=== PATIENT | male | born 1970 | race Caucasian/White ===

== ENCOUNTER 2018-08-25 13:34 | Inpatient (IN) | payer OTHER ==
[~2018-08-25] VITALS: Ht 177.8 cm; Wt 76.3 kg
[2018-08-25] MEDS ORDERED: SOD CHLORIDE 0.9% 1,000 ML IV STA (13:44)
[2018-08-25] MEDS ORDERED: KETOROLAC 15 MG INJ IV STA (13:44)
[2018-08-25] MEDS ORDERED: GEMF600T8 PO (14:08)
--- NOTE | 2018-08-25 15:57 | HP ---
Date/Time of Note Date/Time of Note DATE: 08/25/18 TIME: 15:57 Assessment/Plan VTE Prophylaxis SCD applied (from Nsg): Yes Pharmacological prophylaxis: NA/contraindicated Pharm contraindication: low risk/ambulating Lines/Catheters IV Catheter Type (from Nrsg): Saline Lock Assessment/Plan Assessment/Plan 1. Acute mild diverticulitis - possibly secondary to gastroenteritis sx last week - IV antibiotics and IVF on board - General surgery consulted by ED and appreciate consultation. Will continue supportive care at this time - GI consulted for further recommendations and will most likely need outpatient colonoscopy in 6-8 weeks when inflammation resolves - pain control 2. Abdominal pain secondary to #1 - not associated with PO intake but discussed with patient will need to give abdomen a rest. Will start clear diet 3. Constipation - stool softeners - will check FOBT given ?dark stool hx 4. HLD - will resume Lopid when tolerating PO 5. Disposition - Admit to med/surg for treatment of acute diverticulitis. Once abdominal pain improves, will advance diet and transitioned to PO antibiotics. 2. Result Diagram: 08/25/18 1359 08/25/18 1359 Results 24hrs Laboratory Tests Test 08/25/18 13:59 08/25/18 14:10 White Blood Count 11.6 H Red Blood Count 4.34 L Hemoglobin 14.1 Hematocrit 40.2 L Mean Corpuscular Volume 92.6 Mean Corpuscular Hemoglobin 32.5 Mean Corpuscular Hemoglobin Concent 35.1 Red Cell Distribution Width 11.9 Platelet Count 354 Mean Platelet Volume 9.8 Immature Granulocytes % 0.300 Neutrophils % 74.6 Lymphocytes % 19.0 Monocytes % 5.3 Eosinophils % 0.6 Basophils % 0.2 Nucleated Red Blood Cells % 0.0 Immature Granulocytes # 0.040 H Neutrophils # 8.7 H Lymphocytes # 2.2 Monocytes # 0.6 Eosinophils # 0.1 Basophils # 0.0 Nucleated Red Blood Cells # 0.0 Prothrombin Time 12.9 Prothrombin Time Ratio 1.0 INR International Normalized Ratio 0.96 Activated Partial Thromboplast Time 37.6 H Sodium Level 140 Potassium Level 3.7 Chloride Level 106 Carbon Dioxide Level 24 Anion Gap 10 Blood Urea Nitrogen 13 Creatinine 1.07 Est Glomerular Filtrat Rate mL/min > 60 Glucose Level 130 Calcium Level 9.2 Total Bilirubin 0.7 Direct Bilirubin 0.00 Indirect Bilirubin 0.7 Aspartate Amino Transf (AST/SGOT) 22 Alanine Aminotransferase (ALT/SGPT) 26 Alkaline Phosphatase 88 Total Protein 7.7 Albumin 4.5 Globulin 3.20 Albumin/Globulin Ratio 1.40 Lipase 96 Urine Color YELLOW Urine Clarity CLEAR Urine pH 6.0 Urine Specific [place] 1.014 Urine Ketones NEGATIVE Urine Nitrite NEGATIVE Urine Bilirubin NEGATIVE Urine Urobilinogen NEGATIVE Urine Leukocyte Esterase NEGATIVE Urine Microscopic RBC 1 Urine Microscopic WBC 0 Urine Hemoglobin 1+ H Urine Glucose NEGATIVE Urine Total Protein NEGATIVE HPI/ROS Admit Date/Time Admit Date/Time 08/25/18 Hx of Present Illness 48 yo M with PMH hyperlipidemia presented to ED with worsening abdominal pain and dizziness that started on Friday. Patient states the pain started in the left lower quadrant and migrated to the right lower quadrant. Denies any nausea, vomiting, or pain with PO intake. Patient does admit to experiencing constipation 2 weeks ago and then nonbloody diarrhea, 3-4 episodes daily, lasting from Wednesday 08/16 until 08/20. Patients does admit to dark green stool in the past but denies noticing any nicole bleeding into the toilet bowl. Does have episodes when he notices some blood on toilet paper after aggressively wiping. Denies any chest pain, shortness of breath, nausea, vomiting, urinary issues, or loss of consciousness. ROS All 12 systems reviewed and pertinent positives as per HPI. All others negative. Constitutional: No disoriented, No nausea Eyes: No discharge ENT: No congestion Respiratory: No cough, No shortness of breath, No sputum, No wheezing Cardiovascular: No chest pain, No lightheadedness, No palpitations Gastrointestinal: pain; No constipation, No decreased appetite, No diarrhea, No nausea, No vomiting Genitourinary: no complaints Musculoskeletal: no complaints Skin: No laceration, No rash Neurologic: no complaints Endocrine: no complaints Lymphatic: no complaints Psychological: nl mood/affect Immunologic: no complaints PMH/Family/Social Past Medical History Medical History: high cholesterol Medications Current Medications Piperacillin Sod/ Tazobactam Sod 100 ml @ 200 mls/hr ONCE ONCE IVPB Last administered on 08/25/18at 15:53; Admin Dose 200 MLS/HR; Start 08/25/18 at 16:00; Stop 08/25/18 at 16:29 Dextrose/Sodium Chloride 1,000 ml @ 100 mls/hr Q10H IV ; Start 08/25/18 at 15:49; Status UNV IV Flush (NS 3 ml) 3 ml PER PROTOCOL IV ; Start 08/25/18 at 16:00; Status UNV Ondansetron HCl (Zofran Inj) 4 mg Q6H PRN IV NAUSEA/VOMITING; Start 08/25/18 at 16:00; Status UNV Acetaminophen/ Hydrocodone Bitart ([place] (5/325)) 1 tab Q6H PRN PO .MOD PAIN 4- 6; Start 08/25/18 at 16:00; Status UNV Acetaminophen/ Hydrocodone Bitart ([place] (5/325)) 2 tab Q6H PRN PO .SEVERE PAIN 7-10; Start 08/25/18 at 16:00; Status UNV Morphine Sulfate (morphine) 2 mg Q4H PRN IV .SEVERE PAIN 7-10; Start 08/25/18 at 16:00; Status UNV Docusate Sodium (Colace) 100 mg Q12H PRN PO .CONSTIPATION; Start 08/25/18 at 16:00; Status UNV Magnesium Hydroxide (Milk Of Mag) 30 ml DAILY PRN PO .CONSTIPATION; Start 08/25/18 at 16:00; Status UNV Bisacodyl (Dulcolax) 5 mg DAILY PRN PO .CONSTIPATION; Start 08/25/18 at 16:00; Status UNV Famotidine (Pepcid Iv) 20 mg Q12 IV ; Start 08/25/18 at 21:00; Status UNV Enoxaparin Sodium (Lovenox) 40 mg DAILY SC ; Start 08/26/18 at 09:00; Status UNV Ciprofloxacin/ Dextrose 200 ml @ 200 mls/hr Q12 IVPB ; Start 08/25/18 at 21:00; Status UNV Metronidazole 100 ml @ 100 mls/hr Q8 IVPB ; Start 08/25/18 at 22:00; Status UNV Ketorolac Tromethamine (Toradol) 15 mg Q6H PRN IV PAIN; Start 08/25/18 at 16:00; Stop 08/28/18 at 15:59; Status UNV Coded Allergies: No Known Allergy (Unverified , 08/25/18) Past Surgical History Past Surgical Hx: no surgical history Family History Significant Family History: other (brother- appendicitis) Social History Alcohol Use: rarely Smoking Status: Current every day smoker Drug Use: none Exam/Review of Systems Vital Signs Vitals Vital Signs Date Temp Pulse Resp B/P (MAP) Pulse Ox O2 O2 Flow FiO2 Time Delivery Rate 08/25/18 100.2 103 18 124/73 99 13:36 (90) Exam Exam General: Patient is currently lying in bed, no acute distress. answering questions appropriately HEENT: Atraumatic, normocephalic. The pupils are equal, round and reactive. Extraocular motor are intact Neck: Supple with full range of motion. No rigidity or meningismus Chest: Nontender Lungs: Clear to auscultation bilaterally no crackles rales or wheezing Heart: Normal S1-S2, Regular rhythm and rate. No murmur, S3, or S4 Abdomen: Soft, tenderness palpation over RLQ, mild LLQ. nondistended, no rebound or guarding. Normal bowel sounds Skin: no rashes or lesions Extremities: Normal to inspection, no edema no cyanosis Neurologic: Normal mental status, speech normal, cranial nerves II through XII are intact, motor and sensory are intact, Additional Comments Home medications reviewed PROCEDURE: CT ABDOMEN AND PELVIS WITHOUT CONTRAST. CLINICAL INDICATION: Abdominal pain TECHNIQUE: CT scan of the abdomen and pelvis without contrast was performed on a multidetector high-resolution CT scanner. The patient was scanned without intravenous contrast. Coronal and sagittal reformatted images were obtained from the axial source images. Images were reviewed on a high-resolution PACS workstation. The total exam CTDI equals 8.7 mGy and the total exam DLP equals 529 mGy-cm. One or more of the following dose reduction techniques were used: Automated exposure control. Adjustment of the mA and/or kV according to patient size. Use of iterative reconstruction technique. DICOM images are available COMPARISON: None FINDINGS: CT abdomen: The lung bases are clear. The heart size is within normal limits. There is no significant pericardial effusion. Hepatic morphology is within normal limits. No gross contour deforming masses. The gallbladder is within normal limits. No evidence of intrahepatic or extrahepatic biliary dilatation. The spleen and pancreas are within normal limits. Both adrenal glands are within normal limits. Both kidneys are in anatomic position. No gross renal/ureteric calculi. No evidence of obstructive uropathy. The visualized GI tract demonstrates focal inflammatory changes with bowel wall thickening and adjacent fatty stranding involving the cecum. Several diverticuli are identified. The appendix is well visualized and within normal limits. Atherosclerotic calcification of the aorta. No significant retroperitoneal lymphadenopathy. CT pelvis: The bladder is distended. Prostate is normal size. Rectosigmoid colon demonstrates stool and diverticulosis. No significant free fluid. No significant pelvic lymphadenopathy. The visualized osseous structures demonstrate multilevel degenerative disease of lumbosacral spine. IMPRESSION: 1. ACUTE INFLAMMATION INVOLVING THE CECUM, WITH SEVERAL DIVERTICULI AND ADJACENT FATTY STRANDING AND BOWEL WALL THICKENING SUGGESTIVE OF MILD DIVERTICULITIS. NO EVIDENCE OF PERFORATION OR FOCAL FLUID COLLECTIONS. 2. The appendix is well visualized and within normal limits. 3. Stool filled loops of large bowel suggestive of constipation. No evidence of bowel obstruction. 4. No evidence of free fluid or free air. No gross focal fluid collections. RPTAT: AAPP Physician Laly Date Time Electronically viewed and signed by Physician Laly on 08/25/2018 14:42 DIANE SOLOMON MD Aug 25, 2018 15:57
[2018-08-25] MEDS ORDERED: PIPER-TAZO 3.375 GM IV (PMX) 100 ML IVPB ONE (16:00)
[2018-08-25] MEDS ORDERED: HYDROCODONE/APAP (5/325) TAB PO PRN ×2 (16:00)
[2018-08-25] MEDS ORDERED: ONDANSETRON 4 MG INJ IV PRN (16:00)
[2018-08-25] MEDS ORDERED: BISACODYL (EC) 5 MG TAB PO PRN (16:00)
[2018-08-25] MEDS ORDERED: MAGNESIUM HYDROXIDE 30ML CUP PO PRN (16:00)
[2018-08-25] MEDS ORDERED: DOCUSATE SODIUM 100 MG CAP PO PRN (16:00)
[2018-08-25] MEDS ORDERED: morphine 2 MG INJ IV PRN (16:00)
[2018-08-25] MEDS ORDERED: NACL 0.9% 3 ML SYG IV SCH (16:00)
--- NOTE | 2018-08-25 16:15 | CONS ---
Assessment/Plan Assessment/Plan Hospital Course (Demo Recall) 1. Mild diverticulitis involving cecum -antibiotics -GI consult 2. Abdominal pain: -As above -Pain management 3. Constipation: -Bowel regimen optimization 4. Leukocytosis: -As above 5. Hyperlipidemia: -Medical management Thank you. Patient seen and examined in collaboration with Dr. Collin Blanchard. Consultation Date/Type/Reason Admit Date/Time Date of Consultation: Aug 25, 2018 Type of Consult Surgical Reason for Consultation abdominal pain, diverticulitis Requesting Provider: DONNELL HERRERA MD Date/Time of Note DATE: 08/25/18 TIME: 16:01 Hx of Present Illness Derick Kohler is a 48-year-old man with past medical history of hyperlipidemia who presents with complaints of abdominal pain. Abdominal pain began yesterday, burning in nature. Abdominal pain was stated to have started from the left side which eventually migrated to the right side. Associated symptoms include subjective fever, intermittent constipation x1 month. He denies chills, chest pain, palpitations, nausea, vomiting, dysuria, trauma to the area, skin changes.CT imaging of the abdomen reveals acute inflammation involving cecum with several diverticuli and adjacent fatty stranding and bowel wall thickening suggestive of mild diverticulitis without evidence of perforation or focal fluid collections. Laboratory findings significant for mild leukocytosis. General surgery was asked to evaluate. 12 point review of systems was performed and is negative except for stated in HPI Past Medical History Gastritis Hyperlipidemia Home Meds Reported Medications Gemfibrozil* (Gemfibrozil*) 600 Mg Tablet, 600 MG PO BID, TAB 08/25/18 Medications Current Medications Piperacillin Sod/ Tazobactam Sod 100 ml @ 200 mls/hr ONCE ONCE IVPB Last administered on 08/25/18at 15:53; Admin Dose 200 MLS/HR; Start 08/25/18 at 16:00; Stop 08/25/18 at 16:29 Dextrose/Sodium Chloride 1,000 ml @ 100 mls/hr Q10H IV ; Start 08/25/18 at 15:49; Status UNV IV Flush (NS 3 ml) 3 ml PER PROTOCOL IV ; Start 08/25/18 at 16:00; Status UNV Ondansetron HCl (Zofran Inj) 4 mg Q6H PRN IV NAUSEA/VOMITING; Start 08/25/18 at 16:00; Status UNV Acetaminophen/ Hydrocodone Bitart ([place] (5/325)) 1 tab Q6H PRN PO .MOD PAIN 4- 6; Start 08/25/18 at 16:00; Status UNV Acetaminophen/ Hydrocodone Bitart ([place] (5/325)) 2 tab Q6H PRN PO .SEVERE PAIN 7-10; Start 08/25/18 at 16:00; Status UNV Morphine Sulfate (morphine) 2 mg Q4H PRN IV .SEVERE PAIN 7-10; Start 08/25/18 at 16:00; Status UNV Docusate Sodium (Colace) 100 mg Q12H PRN PO .CONSTIPATION; Start 08/25/18 at 16:00; Status UNV Magnesium Hydroxide (Milk Of Mag) 30 ml DAILY PRN PO .CONSTIPATION; Start 08/25/18 at 16:00; Status UNV Bisacodyl (Dulcolax) 5 mg DAILY PRN PO .CONSTIPATION; Start 08/25/18 at 16:00; Status UNV Famotidine (Pepcid Iv) 20 mg Q12 IV ; Start 08/25/18 at 21:00; Status UNV Enoxaparin Sodium (Lovenox) 40 mg DAILY SC ; Start 08/26/18 at 09:00; Status UNV Ciprofloxacin/ Dextrose 200 ml @ 200 mls/hr Q12 IVPB ; Start 08/25/18 at 21:00; Status UNV Metronidazole 100 ml @ 100 mls/hr Q8 IVPB ; Start 08/25/18 at 22:00; Status UNV Ketorolac Tromethamine (Toradol) 15 mg Q6H PRN IV PAIN; Start 08/25/18 at 16:00; Stop 08/28/18 at 15:59; Status UNV Allergies: Coded Allergies: No Known Allergy (Unverified , 08/25/18) Past Surgical History Past Surgical Hx: no surgical history Family History Significant Family History: no pertinent family hx Social History Alcohol Use: none Smoking Status: Current every day smoker Drug Use: none Exam/Review of Systems Exam Vitals Vital Signs Date Temp Pulse Resp B/P (MAP) Pulse Ox O2 O2 Flow FiO2 Time Delivery Rate 08/25/18 100.2 103 18 124/73 99 13:36 (90) Constitutional: alert, oriented Psych: nl mood/affect; No anxiety Head: normocephalic, atraumatic Eyes: nl conjunctiva, EOMI, nl lids, nl sclera ENMT: nl external ears & nose, nl lips & teeth, mucosa pink and moist Neck: supple, non-tender Respiratory: clear to auscultation, normal air movement; No congested cough Cardiovascular: regular rate and rhythm; No edema Gastrointestinal: soft, distended (Minimal), tender (Right lower quadrant); No rebound or guarding Musculoskeletal: nl extremities to inspection, nl gait and stance Extremities: normal pulses Neurological: nl mental status, nl speech, nl strength Skin: No rash or lesions Lymph: nl lymph nodes Results Result Diagram: 08/25/18 1359 08/25/18 1359 Results 24hrs Laboratory Tests Test 08/25/18 13:59 08/25/18 14:10 White Blood Count 11.6 H Red Blood Count 4.34 L Hemoglobin 14.1 Hematocrit 40.2 L Mean Corpuscular Volume 92.6 Mean Corpuscular Hemoglobin 32.5 Mean Corpuscular Hemoglobin Concent 35.1 Red Cell Distribution Width 11.9 Platelet Count 354 Mean Platelet Volume 9.8 Immature Granulocytes % 0.300 Neutrophils % 74.6 Lymphocytes % 19.0 Monocytes % 5.3 Eosinophils % 0.6 Basophils % 0.2 Nucleated Red Blood Cells % 0.0 Immature Granulocytes # 0.040 H Neutrophils # 8.7 H Lymphocytes # 2.2 Monocytes # 0.6 Eosinophils # 0.1 Basophils # 0.0 Nucleated Red Blood Cells # 0.0 Prothrombin Time 12.9 Prothrombin Time Ratio 1.0 INR International Normalized Ratio 0.96 Activated Partial Thromboplast Time 37.6 H Sodium Level 140 Potassium Level 3.7 Chloride Level 106 Carbon Dioxide Level 24 Anion Gap 10 Blood Urea Nitrogen 13 Creatinine 1.07 Est Glomerular Filtrat Rate mL/min > 60 Glucose Level 130 Calcium Level 9.2 Total Bilirubin 0.7 Direct Bilirubin 0.00 Indirect Bilirubin 0.7 Aspartate Amino Transf (AST/SGOT) 22 Alanine Aminotransferase (ALT/SGPT) 26 Alkaline Phosphatase 88 Total Protein 7.7 Albumin 4.5 Globulin 3.20 Albumin/Globulin Ratio 1.40 Lipase 96 Urine Color YELLOW Urine Clarity CLEAR Urine pH 6.0 Urine Specific [place] 1.014 Urine Ketones NEGATIVE Urine Nitrite NEGATIVE Urine Bilirubin NEGATIVE Urine Urobilinogen NEGATIVE Urine Leukocyte Esterase NEGATIVE Urine Microscopic RBC 1 Urine Microscopic WBC 0 Urine Hemoglobin 1+ H Urine Glucose NEGATIVE Urine Total Protein NEGATIVE Medications Medication Current Medications Piperacillin Sod/ Tazobactam Sod 100 ml @ 200 mls/hr ONCE ONCE IVPB Last administered on 08/25/18at 15:53; Admin Dose 200 MLS/HR; Start 08/25/18 at 16:00; Stop 08/25/18 at 16:29 Dextrose/Sodium Chloride 1,000 ml @ 100 mls/hr Q10H IV ; Start 08/25/18 at 15:49; Status UNV IV Flush (NS 3 ml) 3 ml PER PROTOCOL IV ; Start 08/25/18 at 16:00; Status UNV Ondansetron HCl (Zofran Inj) 4 mg Q6H PRN IV NAUSEA/VOMITING; Start 08/25/18 at 16:00; Status UNV Acetaminophen/ Hydrocodone Bitart ([place] (5/325)) 1 tab Q6H PRN PO .MOD PAIN 4- 6; Start 08/25/18 at 16:00; Status UNV Acetaminophen/ Hydrocodone Bitart ([place] (5/325)) 2 tab Q6H PRN PO .SEVERE PAIN 7-10; Start 08/25/18 at 16:00; Status UNV Morphine Sulfate (morphine) 2 mg Q4H PRN IV .SEVERE PAIN 7-10; Start 08/25/18 at 16:00; Status UNV Docusate Sodium (Colace) 100 mg Q12H PRN PO .CONSTIPATION; Start 08/25/18 at 16:00; Status UNV Magnesium Hydroxide (Milk Of Mag) 30 ml DAILY PRN PO .CONSTIPATION; Start 08/25/18 at 16:00; Status UNV Bisacodyl (Dulcolax) 5 mg DAILY PRN PO .CONSTIPATION; Start 08/25/18 at 16:00; Status UNV Famotidine (Pepcid Iv) 20 mg Q12 IV ; Start 08/25/18 at 21:00; Status UNV Enoxaparin Sodium (Lovenox) 40 mg DAILY SC ; Start 08/26/18 at 09:00; Status UNV Ciprofloxacin/ Dextrose 200 ml @ 200 mls/hr Q12 IVPB ; Start 08/25/18 at 21:00; Status UNV Metronidazole 100 ml @ 100 mls/hr Q8 IVPB ; Start 08/25/18 at 22:00; Status UNV Ketorolac Tromethamine (Toradol) 15 mg Q6H PRN IV PAIN; Start 08/25/18 at 16:00; Stop 08/28/18 at 15:59; Status UNV BELINDA OLVERA [employer] Aug 25, 2018 16:14
--- NOTE | 2018-08-25 17:36 | ERD ---
ER Documentation Chief Complaint Chief Complaint AP SINCE FRIDAY HPI This is a 48-year-old man complaining of right lower quadrant abdominal pain and tactile fever with some nausea x3 days. Patient states his abdominal pain initially began in the periumbilical region and then migrated to the right lower quadrant over the last couple of days, he also states he had diarrhea episodes last week which resolved. Patient denies blood per rectum or melena, no vomiting, no chest pain or shortness of breath, no recent travel or recent antibiotic therapy. Patient denies surgical history. ROS All systems reviewed and are negative except as per history of present illness. Medications Home Meds Reported Medications Gemfibrozil* (Gemfibrozil*) 600 Mg Tablet, 600 MG PO BID, TAB 08/25/18 Allergies Allergies: Coded Allergies: No Known Allergy (Unverified , 08/25/18) PMhx/Soc History of Surgery: No Anesthesia Reaction: No Hx Neurological Disorder: No Hx Respiratory Disorders: No Hx Cardiac Disorders: Yes (hypercholesterolemia) Hx Psychiatric Problems: No Hx Miscellaneous Medical Probl: No Hx Alcohol Use: Yes Hx Substance Use: No Hx Tobacco Use: Yes (1/2 pack daily) Smoking Status: Current every day smoker FmHx Family History: No diabetes Physical Exam Vitals Vital Signs Date Temp Pulse Resp B/P (MAP) Pulse Ox O2 O2 Flow FiO2 Time Delivery Rate 08/25/18 99.0 83 20 136/92 98 Room Air 16:13 (107) 08/25/18 100.2 103 18 124/73 99 13:36 (90) Physical Exam GENERAL: Well-developed, well-nourished, well-hydrated, moderate discomfort, febrile HEENT: Moist mucous membranes, pink conjunctiva, no cervical spine tenderness or step-off deformities, no goiter, no jaundice or icterus, extraocular movements intact without pain. No submandibular induration, and no pharyngeal erythema NEURO: Alert and oriented 3, cranial nerves II through XII intact bilaterally, pupils equal round reactive to light, no focal deficits or facial asymmetry, sensation intact distally Strength 5/5 in upper and lower extremities bilaterally CARDIAC: Tachycardic, no murmurs rubs or gallops LUNGS: Clear bilaterally no wheezing crackles or stridor ABDOMEN: Positive tenderness over the right lower quadrant abdomen with voluntary guarding, no rigidity or masses SKIN: Warm and dry to touch, no abrasions, contusions, or hematomas, no lacerations, no ecchymosis, no target lesions, and without ulcers EXTREMITIES: No clubbing cyanosis or edema, calves are bilaterally symmetrical, no Homans sign, no popliteal cord sign. Distal pulses equal and bilateral PSYCH: Normal affect without agitation or irritability Result Diagram: 08/25/18 1359 08/25/18 1359 Results 24 hrs Laboratory Tests Test 08/25/18 13:59 08/25/18 14:10 White Blood Count 11.6 10^3/ul Red Blood Count 4.34 10^6/ul Hemoglobin 14.1 g/dl Hematocrit 40.2 % Mean Corpuscular Volume 92.6 fl Mean Corpuscular Hemoglobin 32.5 pg Mean Corpuscular Hemoglobin Concent 35.1 g/dl Red Cell Distribution Width 11.9 % Platelet Count 354 10^3/UL Mean Platelet Volume 9.8 fl Immature Granulocytes % 0.300 % Neutrophils % 74.6 % Lymphocytes % 19.0 % Monocytes % 5.3 % Eosinophils % 0.6 % Basophils % 0.2 % Nucleated Red Blood Cells % 0.0 /100WBC Immature Granulocytes # 0.040 10^3/ul Neutrophils # 8.7 10^3/ul Lymphocytes # 2.2 10^3/ul Monocytes # 0.6 10^3/ul Eosinophils # 0.1 10^3/ul Basophils # 0.0 10^3/ul Nucleated Red Blood Cells # 0.0 10^3/ul Prothrombin Time 12.9 Sec Prothrombin Time Ratio 1.0 INR International Normalized Ratio 0.96 Activated Partial Thromboplast Time 37.6 Sec Sodium Level 140 mmol/L Potassium Level 3.7 mmol/L Chloride Level 106 mmol/L Carbon Dioxide Level 24 mmol/L Anion Gap 10 Blood Urea Nitrogen 13 mg/dl Creatinine 1.07 mg/dl Est Glomerular Filtrat Rate mL/min > 60 mL/min Glucose Level 130 mg/dl Calcium Level 9.2 mg/dl Total Bilirubin 0.7 mg/dl Direct Bilirubin 0.00 mg/dl Indirect Bilirubin 0.7 mg/dl Aspartate Amino Transf (AST/SGOT) 22 IU/L Alanine Aminotransferase (ALT/SGPT) 26 IU/L Alkaline Phosphatase 88 IU/L Total Protein 7.7 g/dl Albumin 4.5 g/dl Globulin 3.20 g/dl Albumin/Globulin Ratio 1.40 Lipase 96 U/L Urine Color YELLOW Urine Clarity CLEAR Urine pH 6.0 Urine Specific [place] 1.014 Urine Ketones NEGATIVE mg/dL Urine Nitrite NEGATIVE mg/dL Urine Bilirubin NEGATIVE mg/dL Urine Urobilinogen NEGATIVE mg/dL Urine Leukocyte Esterase NEGATIVE Lisa/ul Urine Microscopic RBC 1 /HPF Urine Microscopic WBC 0 /HPF Urine Hemoglobin 1+ mg/dL Urine Glucose NEGATIVE mg/dL Urine Total Protein NEGATIVE mg/dl Current Medications Medications Dose Sig/Gian Start Time Status Last (Trade) Ordered Route PRN Stop Time Admin Dose Reason Admin Sodium 1,000 ml @ Q1H STAT 08/25/18 DC 08/25/18 Chloride 1,000 mls/hr IV 13:44 14:57 08/25/18 14:43 Ketorolac 15 mg ONCE STAT 08/25/18 DC 08/25/18 Tromethamine IV 13:44 14:56 (Toradol) 08/25/18 14:15 Piperacillin 100 ml @ ONCE ONCE 08/25/18 DC 08/25/18 Sod/ 200 mls/hr IVPB 16:00 15:53 Tazobactam 08/25/18 16:29 Sod 1,000 ml @ Q10H IV 08/25/18 Dextrose/Sodi 100 mls/hr 20:00 um Chloride IV Flush 3 ml PER 08/25/18 (NS 3 ml) PROTOCOL IV 16:00 Ondansetron 4 mg Q6H PRN 08/25/18 HCl (Zofran IV 16:00 Inj) NAUSEA/VOMITI NG 1 tab Q6H PRN 08/25/18 Acetaminophen PO .MOD PAIN 16:00 / 4-6 Hydrocodone Bitart ([place] (5/325)) 2 tab Q6H PRN 08/25/18 Acetaminophen PO .SEVERE 16:00 / PAIN 7-10 Hydrocodone Bitart ([place] (5/325)) Morphine 2 mg Q4H PRN 08/25/18 Sulfate IV .SEVERE 16:00 (morphine) PAIN 7-10 Docusate 100 mg Q12H PRN 08/25/18 Sodium PO 16:00 (Colace) .CONSTIPATION Magnesium 30 ml DAILY PRN 08/25/18 Hydroxide PO 16:00 (Milk Of Mag) .CONSTIPATION Bisacodyl 5 mg DAILY PRN 08/25/18 (Dulcolax) PO 16:00 .CONSTIPATION Famotidine 20 mg Q12 IV 08/25/18 (Pepcid Iv) 21:00 Enoxaparin 40 mg DAILY SC 08/26/18 Sodium 09:00 (Lovenox) 200 ml @ Q12 IVPB 08/25/18 Ciprofloxacin 200 mls/hr 21:00 / Dextrose 100 ml @ Q8 IVPB 08/25/18 Metronidazole 100 mls/hr 22:00 Ketorolac 15 mg Q6H PRN 08/25/18 Tromethamine IV PAIN 16:00 (Toradol) 08/28/18 15:59 Piperacillin 100 ml @ Q6 IVPB 08/25/18 Sod/ 200 mls/hr 20:00 Tazobactam Sod Nicotine 1 patch DAILY 08/25/18 (Nicoderm 21 TRANSDERM 20:00 Mg/ 24hr) Procedures/MDM IV line was established patient was placed on gambling monitor rhythm strip revealed a sinus tachycardia at 110 bpm with upright P and T waves. Patient was febrile. I do not suspect sepsis. I administered 1 L normal saline IV, Toradol 15 mg IV, Zosyn 3.375 g IV CBC and electrolytes were normal, liver function tests were normal, urine analysis negative for infection CT scan of the abdomen and pelvis revealed acute right-sided diverticulitis with bowel thickening and inflammatory changes sparing the appendix, please refer to radiologist dictation for full report. I spoke to the surgeon on-call regarding the patient's presentation, symptomatology, CT scan findings. Patient admitted to [facility] continued antibiotics and other specialist consultations deferred to admitting team. Departure Diagnosis: Primary Impression: Acute diverticulitis Condition: DONNELL Flannery MD Aug 25, 2018 17:36
[2018-08-25 19:37] VITALS: Ht 177.8 cm; Wt 76.3 kg
[2018-08-25] MEDS: DEXTROSE 5%-0.45% NACL 1,000 ML IV SCH (19:57)
[2018-08-25 20:08] VITALS: BP 112/72; PULSE 60; RESP 18
[2018-08-25] MEDS: PIPER-TAZO 3.375 GM IV (PMX) 100 ML IVPB SCH (20:55)
[2018-08-25] MEDS: FAMOTIDINE 20 MG INJ IV SCH (20:56)
[2018-08-25] MEDS: NICOTINE (21 MG/24 HR) PATCH TRANSDERM SCH (20:56)
[2018-08-25] MEDS: CIPROFLOXACIN 400MG/D5W 200 ML IVPB SCH (22:45)
[2018-08-25] MEDS: metroNIDAZOLE 500 MG/NS (PMX) 100 ML IVPB SCH (23:06)
[2018-08-26] MEDS: PIPER-TAZO 3.375 GM IV (PMX) 100 ML IVPB SCH ×3 (01:03→11:35)
[2018-08-26] MEDS: KETOROLAC 15 MG INJ IV PRN ×3 (01:06→20:42)
[2018-08-26 01:07] VITALS: BP 101/57; PULSE 76; RESP 18
[2018-08-26] MEDS: metroNIDAZOLE 500 MG/NS (PMX) 100 ML IVPB SCH ×3 (05:04→21:48)
[2018-08-26] MEDS: DEXTROSE 5%-0.45% NACL 1,000 ML IV SCH ×2 (06:00→11:35)
[2018-08-26 07:26] VITALS: BP 109/65; PULSE 73; RESP 16
[2018-08-26] MEDS: FAMOTIDINE 20 MG INJ IV SCH ×2 (08:36→20:42)
[2018-08-26] MEDS: NICOTINE (21 MG/24 HR) PATCH TRANSDERM SCH (08:36)
[2018-08-26] MEDS: CIPROFLOXACIN 400MG/D5W 200 ML IVPB SCH ×2 (08:36→20:42)
[2018-08-26] MEDS: ENOXAPARIN 40 MG/0.4 ML SYG SC SCH (08:37)
--- NOTE | 2018-08-26 12:25 | PN ---
Date/Time of Note Date/Time of Note DATE: 08/26/18 TIME: 12:23 Assessment/Plan Lines/Catheters IV C[facility]ter Type (from [facility]): Peripheral IV Assessment/Plan Chief Complaint/Hosp Course 1. Mild diverticulitis involving cecum -Continue antibiotics -GI consult pending 2. Abdominal pain: Improved -As above -Pain management 3. Constipation: -Bowel regimen optimization 4. Leukocytosis: Slight uptick however afebrile, symptoms improving -As above 5. Hyperlipidemia: -Medical management Thank you. Patient seen and examined in collaboration with Dr. Collin Blanchard. Subjective 24 Hr Interval Summary Abdominal discomfort improved. + Flatus. No fevers, chills, sob, congested cough, cp, palpitations, [place], dizziness, nausea, vomiting, diarrhea, dysuria. Exam/Review of Systems Vital Signs Vitals Vital Signs Date Temp Pulse Resp B/P (MAP) Pulse Ox O2 O2 Flow FiO2 Time Delivery Rate 08/26/18 98.4 73 16 109/65 99 07:26 (80) 08/25/18 Room Air 18:32 Intake and Output 08/25/18 08/25/18 08/26/18 1515:00 23:00 07:00 IntakeIntake Total 1100 ml 1400 ml BalanceBalance 1100 ml 1400 ml Exam Free Text/Dictation Constitutional: alert, oriented Psych: nl mood/affect; No anxiety Head: normocephalic, atraumatic Eyes: nl conjunctiva, EOMI, nl lids, nl sclera ENMT: nl external ears & nose, nl lips & teeth, mucosa pink and moist Neck: supple, non-tender Respiratory: clear to auscultation, normal air movement; No congested cough Cardiovascular: regular rate and rhythm; No edema Gastrointestinal: soft, distended (Minimal-improved), tender (Right lower quadrant-improved); No rebound or guarding Musculoskeletal: nl extremities to inspection, nl gait and stance Extremities: normal pulses Neurological: nl mental status, nl speech, nl strength Skin: No rash or lesions Lymph: nl lymph nodes Results Result Diagram: 08/26/1861508/26/18615 BELINDA OLVERA NP Aug 26, 2018 12:25
--- NOTE | 2018-08-26 14:21 | PN ---
Date/Time of Note Date/Time of Note DATE: 08/26/18 TIME: 14:20 Assessment/Plan VTE Prophylaxis Risk score (from Ns)>0 risk: 2 SCD applied (from [facility]): No SCD contraindicated: other Pharmacological prophylaxis: LMWH Lines/Catheters IV Catheter Type (from [facility]): Peripheral IV Assessment/Plan Hospital Course SUBJECTIVE: Remains afebrile. Continues to have abdominal pain, well controlled with analgesics. OBJECTIVE: Physical Exam General: Adequately build 48 year-old male lying in bed in no apparent distress. HEENT: Normocephalic, atraumatic. Eyes: Anicteric sclerae, conjunctivae clear. ENT: Nasal septum midline, oral mucosa moist. Neck supple, no JVD noticed. Respiratory: Bilaterally clear breath sounds. No use of accessory muscles of respiration. No adventitious breath sounds. Cardiovascular: S1, S2 heard. No murmurs or gallops. Abdomen: Soft and nondistended. Right lower quadrant tenderness. Bowel sounds positive in all 4 quadrants. Genitourinary: Deferred. Extremities: No cyanosis, no clubbing, no edema. Peripheral pulses palpable. Neurologic: Cranial nerves II through XII grossly intact. The patient is awake, alert, and oriented. Skin: Normal skin turgor. No skin rashes. Labs & Vitals per chart ASSESSMENT & PLAN 42-year-old male with past medical history of dyslipidemia who presented to the emergency room with chief complaint of abdominal pain and dizziness with CT scan showing acute inflammation involving the cecum with several diverticuli and adjacent fatty stranding and bowel wall thickening suggestive of mild diverticulitis, who was admitted to inpatient setting for further treatment and evaluation. 1. Acute diverticulitis. Continue antimicrobials. Being followed by general surgery. Continue n.p.o. Await clinical improvement before starting the patient on clear liquids. 2. Dyslipidemia. Resume Lopid once able to tolerate oral intake. 3. Nicotine use. Cessation advised. Continue nicotine patch. 4. Fluids, electrolytes, and nutrition. N.p.o. IV fluids. 5. DVT prophylaxis. Bilateral SCDs. Subcutaneous Lovenox. 6. Plan. Continue antimicrobials including coverage for anaerobes. Continue n.p.o. Await clinical improvement before initiating the patient on a diet. The patient was seen in collaboration with Dr. Newton. Result Diagram: 08/26/1816 08/26/18 0616 Results 24hrs Laboratory Tests Test 08/26/18 06:16 White Blood Count 12.1 H Red Blood Count 4.18 L Hemoglobin 13.5 L Hematocrit 38.9 L Mean Corpuscular Volume 93.1 Mean Corpuscular Hemoglobin 32.3 Mean Corpuscular Hemoglobin Concent 34.7 Red Cell Distribution Width 12.0 Platelet Count 329 Mean Platelet Volume 9.6 Immature Granulocytes % 0.400 Neutrophils % 72.3 Lymphocytes % 17.4 Monocytes % 8.9 Eosinophils % 0.8 Basophils % 0.2 Nucleated Red Blood Cells % 0.0 Immature Granulocytes # 0.050 H Neutrophils # 8.7 H Lymphocytes # 2.1 Monocytes # 1.1 H Eosinophils # 0.1 Basophils # 0.0 Nucleated Red Blood Cells # 0.0 Sodium Level 140 Potassium Level 3.7 Chloride Level 108 Carbon Dioxide Level 25 Anion Gap 7 Blood Urea Nitrogen 10 Creatinine 1.16 Est Glomerular Filtrat Rate mL/min > 60 Glucose Level 92 Calcium Level 9.0 Magnesium Level 2.0 Exam/Review of Systems Exam Vitals Vital Signs Date Temp Pulse Resp B/P (MAP) Pulse Ox O2 O2 Flow FiO2 Time Delivery Rate 08/26/18 98.4 73 16 109/65 99 07:26 (80) 08/25/18 Room Air 18:32 Intake and Output 08/25/18 08/25/18 08/26/18 1515:00 23:00 07:00 IntakeIntake Total 1100 ml 1400 ml BalanceBalance 1100 ml 1400 ml Results Results 24hrs Laboratory Tests Test 08/26/18 06:16 White Blood Count 12.1 H Red Blood Count 4.18 L Hemoglobin 13.5 L Hematocrit 38.9 L Mean Corpuscular Volume 93.1 Mean Corpuscular Hemoglobin 32.3 Mean Corpuscular Hemoglobin Concent 34.7 Red Cell Distribution Width 12.0 Platelet Count 329 Mean Platelet Volume 9.6 Immature Granulocytes % 0.400 Neutrophils % 72.3 Lymphocytes % 17.4 Monocytes % 8.9 Eosinophils % 0.8 Basophils % 0.2 Nucleated Red Blood Cells % 0.0 Immature Granulocytes # 0.050 H Neutrophils # 8.7 H Lymphocytes # 2.1 Monocytes # 1.1 H Eosinophils # 0.1 Basophils # 0.0 Nucleated Red Blood Cells # 0.0 Sodium Level 140 Potassium Level 3.7 Chloride Level 108 Carbon Dioxide Level 25 Anion Gap 7 Blood Urea Nitrogen 10 Creatinine 1.16 Est Glomerular Filtrat Rate mL/min > 60 Glucose Level 92 Calcium Level 9.0 Magnesium Level 2.0 Medications Medication Current Medications Dextrose/Sodium Chloride 1,000 ml @ 100 mls/hr Q10H IV Last administered on 08/26/18at 11:35; Admin Dose 100 MLS/HR; Start 08/25/18 at 20:00 IV Flush (NS 3 ml) 3 ml PER PROTOCOL IV Last administered on 08/26/18at 01:06; Admin Dose 3 ML; Start 08/25/18 at 16:00 Ondansetron HCl (Zofran Inj) 4 mg Q6H PRN IV NAUSEA/VOMITING; Start 08/25/18 at 16:00 Acetaminophen/ Hydrocodone Bitart ([place] (5/325)) 1 tab Q6H PRN PO .MOD PAIN 4- 6; Start 08/25/18 at 16:00 Acetaminophen/ Hydrocodone Bitart ([place] (5/325)) 2 tab Q6H PRN PO .SEVERE PAIN 7-10; Start 08/25/18 at 16:00 Morphine Sulfate (morphine) 2 mg Q4H PRN IV .SEVERE PAIN 7-10; Start 08/25/18 at 16:00 Docusate Sodium (Colace) 100 mg Q12H PRN PO .CONSTIPATION; Start 08/25/18 at 16:00 Magnesium Hydroxide (Milk Of Mag) 30 ml DAILY PRN PO .CONSTIPATION; Start 08/25/18 at 16:00 Bisacodyl (Dulcolax) 5 mg DAILY PRN PO .CONSTIPATION; Start 08/25/18 at 16:00 Famotidine (Pepcid Iv) 20 mg Q12 IV Last administered on 08/26/18at 08:36; Admin Dose 20 MG; Start 08/25/18 at 21:00 Enoxaparin Sodium (Lovenox) 40 mg DAILY SC Last administered on 08/26/18at 08:37; Admin Dose 40 MG; Start 08/26/18 at 09:00 Ciprofloxacin/ Dextrose 200 ml @ 200 mls/hr Q12 IVPB Last administered on 08/26/18at 08:36; Admin Dose 200 MLS/HR; Start 08/25/18 at 21:00 Metronidazole 100 ml @ 100 mls/hr Q8 IVPB Last administered on 08/26/18at 05:04; Admin Dose 100 MLS/HR; Start 08/25/18 at 22:00 Ketorolac Tromethamine (Toradol) 15 mg Q6H PRN IV PAIN Last administered on 08/26/18 11:35; Admin Dose 15 MG; Start 08/25/18 at 16:00; Stop 08/28/18 at 15:59 Piperacillin Sod/ Tazobactam Sod 100 ml @ 200 mls/hr Q6 IVPB Last administered on 08/26/18at 11:35; Admin Dose 200 MLS/HR; Start 08/25/18 at 20:00 Nicotine (Nicoderm 21 Mg/ 24hr) 1 patch DAILY TRANSDERM Last administered on 08/26/18at 08:36; Admin Dose 1 PATCH; Start 08/25/18 at 20:00 LUMA HURLEY NP Aug 26, 2018 14:21
[2018-08-26 16:03] VITALS: BP 114/69; PULSE 71; RESP 16
--- NOTE | 2018-08-26 16:35 | CONS ---
Assessment/Plan Assessment/Plan Hospital Course (Demo Recall) Summary Assessment and Plan: Assessment: Acute mild diverticulitis involving the cecum Leukocytosis Dyslipidemia Plan: Continue liquid diet as patient continues to complain of right lower quadrant pain Continue antibiotics as prescribed Recommend colonoscopy 6 to 12 weeks after treatment of diverticulitis as an outpatient Patient seen in collaboration with Dr. Villafana CC: JOE VILLAFANA MD ; Consultation Date/Type/Reason Admit Date/Time 08/25/18 Date of Consultation: Aug 26, 2018 Type of Consult GI Reason for Consultation Acute diverticulitis involving the cecum Date/Time of Note DATE: 08/26/18 TIME: 16:30 Hx of Present Illness This is a 48-year-old male with past medical history of hyperlipidemia who presented to the hospital with complaints of progressive abdominal pain which started on Friday afternoon. Patient notes recent episodes of of irregular bowel habits experiencing constipation for 2 weeks and then changing to diarrhea going up to 4 times a day which has since resolved. Time patient denies any overt signs of GI bleed including melena, hematochezia, or hematemesis. Work-up in the ED showed a mild leukocytosis, normal INR, normal LFTs, and today of mild normocytic anemia. Imaging on admission included a CT abdomen pelvis without contrast showing acute mild diverticulitis involving the cecum. Of note the appendix was well visualized and within normal limits area. He was started on antibiotic therapy and consulted by surgery who recommended a GI consult. At time evaluation patient is awake alert and oriented complains of less pain he is currently tolerating a liquid diet well and again declines any overt signs of GI bleed. Review of Systems: A 12 system, review was conducted and is negative except as noted in the HPI or here. Past Medical History Medical History: high cholesterol Home Meds Reported Medications Gemfibrozil* (Gemfibrozil*) 600 Mg Tablet, 600 MG PO BID, TAB 08/25/18 Medications Current Medications Dextrose/Sodium Chloride 1,000 ml @ 100 mls/hr Q10H IV Last administered on 08/26/18at 11:35; Admin Dose 100 MLS/HR; Start 08/25/18 at 20:00 IV Flush (NS 3 ml) 3 ml PER PROTOCOL IV Last administered on 08/26/18at 01:06; Admin Dose 3 ML; Start 08/25/18 at 16:00 Ondansetron HCl (Zofran Inj) 4 mg Q6H PRN IV NAUSEA/VOMITING; Start 08/25/18 at 16:00 Acetaminophen/ Hydrocodone Bitart ([place] (5/325)) 1 tab Q6H PRN PO .MOD PAIN 4- 6; Start 08/25/18 at 16:00 Acetaminophen/ Hydrocodone Bitart ([place] (5/325)) 2 tab Q6H PRN PO .SEVERE PAIN 7-10; Start 08/25/18 at 16:00 Morphine Sulfate (morphine) 2 mg Q4H PRN IV .SEVERE PAIN 7-10; Start 08/25/18 at 16:00 Docusate Sodium (Colace) 100 mg Q12H PRN PO .CONSTIPATION; Start 08/25/18 at 16:00 Magnesium Hydroxide (Milk Of Mag) 30 ml DAILY PRN PO .CONSTIPATION; Start 08/25/18 at 16:00 Bisacodyl (Dulcolax) 5 mg DAILY PRN PO .CONSTIPATION; Start 08/25/18 at 16:00 Famotidine (Pepcid Iv) 20 mg Q12 IV Last administered on 08/26/18at 08:36; Admin Dose 20 MG; Start 08/25/18 at 21:00 Enoxaparin Sodium (Lovenox) 40 mg DAILY SC Last administered on 08/26/18at 08:37; Admin Dose 40 MG; Start 08/26/18 at 09:00 Ciprofloxacin/ Dextrose 200 ml @ 200 mls/hr Q12 IVPB Last administered on 08/26/18at 08:36; Admin Dose 200 MLS/HR; Start 08/25/18 at 21:00 Metronidazole 100 ml @ 100 mls/hr Q8 IVPB Last administered on 08/26/18at 15:16 ; Admin Dose 100 MLS/HR; Start 08/25/18 at 22:00 Ketorolac Tromethamine (Toradol) 15 mg Q6H PRN IV PAIN Last administered on 08/26/18 11:35; Admin Dose 15 MG; Start 08/25/18 at 16:00; Stop 08/28/18 at 15:59 Piperacillin Sod/ Tazobactam Sod 100 ml @ 200 mls/hr Q6 IVPB Last administered on 08/26/18at 11:35; Admin Dose 200 MLS/HR; Start 08/25/18 at 20:00 Nicotine (Nicoderm 21 Mg/ 24hr) 1 patch DAILY TRANSDERM Last administered on 08/26/18at 08:36; Admin Dose 1 PATCH; Start 08/25/18 at 20:00 Allergies: Coded Allergies: No Known Allergy (Unverified , 08/25/18) Past Surgical History Past Surgical Hx: no surgical history Social History Alcohol Use: rarely Smoking Status: Current every day smoker Drug Use: none Exam/Review of Systems Exam Vitals Vital Signs Date Temp Pulse Resp B/P (MAP) Pulse Ox O2 O2 Flow FiO2 Time Delivery Rate 08/26/18 98.4 71 16 114/69 100 16:03 (84) 08/25/18 Room Air 18:32 Intake and Output 08/25/18 08/25/18 08/26/18 1515:00 23:00 07:00 IntakeIntake Total 1100 ml 1400 ml BalanceBalance 1100 ml 1400 ml Exam PHYSICAL EXAMINATION: GENERAL: Well developed, well nourished, alert & oriented x 3, in no acute distress SKIN: No lesions HEAD: Normocephalic, atraumatic, no tenderness. EYES: Pupils equal reactive to light and accommodation, no discharge. EARS/NOSE AND THROAT: Ears normal, nose normal, oropharynx normal. NECK: Supple, no masses. CHEST: Inspection within normal limits. CARDIOVASCULAR: Heart: Regular rate and rhythm, no murmurs RESPIRATORY: Lungs clear to auscultation GASTROINTESTINAL AND LIVER: Abdomen: Soft, tenderness RLQ, non-distended, no hernias, no masses, no organomegaly, no ascites, no guarding, no rebound tenderness, normoactive bowel sounds. Rectal: Deferred. EXTREMITIES: No cyanosis, clubbing or edema. Results Result Diagram: 08/26/18 0616 08/26/18 0616 Results 24hrs Laboratory Tests Test 08/26/18 06:16 White Blood Count 12.1 H Red Blood Count 4.18 L Hemoglobin 13.5 L Hematocrit 38.9 L Mean Corpuscular Volume 93.1 Mean Corpuscular Hemoglobin 32.3 Mean Corpuscular Hemoglobin Concent 34.7 Red Cell Distribution Width 12.0 Platelet Count 329 Mean Platelet Volume 9.6 Immature Granulocytes % 0.400 Neutrophils % 72.3 Lymphocytes % 17.4 Monocytes % 8.9 Eosinophils % 0.8 Basophils % 0.2 Nucleated Red Blood Cells % 0.0 Immature Granulocytes # 0.050 H Neutrophils # 8.7 H Lymphocytes # 2.1 Monocytes # 1.1 H Eosinophils # 0.1 Basophils # 0.0 Nucleated Red Blood Cells # 0.0 Sodium Level 140 Potassium Level 3.7 Chloride Level 108 Carbon Dioxide Level 25 Anion Gap 7 Blood Urea Nitrogen 10 Creatinine 1.16 Est Glomerular Filtrat Rate mL/min > 60 Glucose Level 92 Calcium Level 9.0 Magnesium Level 2.0 Medications Medication Current Medications Dextrose/Sodium Chloride 1,000 ml @ 100 mls/hr Q10H IV Last administered on 08/26/18at 11:35; Admin Dose 100 MLS/HR; Start 08/25/18 at 20:00 IV Flush (NS 3 ml) 3 ml PER PROTOCOL IV Last administered on 08/26/18at 01:06; Admin Dose 3 ML; Start 08/25/18 at 16:00 Ondansetron HCl (Zofran Inj) 4 mg Q6H PRN IV NAUSEA/VOMITING; Start 08/25/18 at 16:00 Acetaminophen/ Hydrocodone Bitart ([place] (5/325)) 1 tab Q6H PRN PO .MOD PAIN 4- 6; Start 08/25/18 at 16:00 Acetaminophen/ Hydrocodone Bitart ([place] (5/325)) 2 tab Q6H PRN PO .SEVERE PAIN 7-10; Start 08/25/18 at 16:00 Morphine Sulfate (morphine) 2 mg Q4H PRN IV .SEVERE PAIN 7-10; Start 08/25/18 at 16:00 Docusate Sodium (Colace) 100 mg Q12H PRN PO .CONSTIPATION; Start 08/25/18 at 16:00 Magnesium Hydroxide (Milk Of Mag) 30 ml DAILY PRN PO .CONSTIPATION; Start 08/25/18 at 16:00 Bisacodyl (Dulcolax) 5 mg DAILY PRN PO .CONSTIPATION; Start 08/25/18 at 16:00 Famotidine (Pepcid Iv) 20 mg Q12 IV Last administered on 08/26/18at 08:36; Admin Dose 20 MG; Start 08/25/18 at 21:00 Enoxaparin Sodium (Lovenox) 40 mg DAILY SC Last administered on 08/26/18at 08:37; Admin Dose 40 MG; Start 08/26/18 at 09:00 Ciprofloxacin/ Dextrose 200 ml @ 200 mls/hr Q12 IVPB Last administered on 08/26/18 08:36; Admin Dose 200 MLS/HR; Start 08/25/18 at 21:00 Metronidazole 100 ml @ 100 mls/hr Q8 IVPB Last administered on 08/26/18 15:16; Admin Dose 100 MLS/HR; Start 08/25/18 at 22:00 Ketorolac Tromethamine (Toradol) 15 mg Q6H PRN IV PAIN Last administered on 08/26/18 11:35; Admin Dose 15 MG; Start 08/25/18 at 16:00; Stop 08/28/18 at 15:59 Piperacillin Sod/ Tazobactam Sod 100 ml @ 200 mls/hr Q6 IVPB Last administered on 08/26/18 11:35; Admin Dose 200 MLS/HR; Start 08/25/18 at 20:00 Nicotine (Nicoderm 21 Mg/ 24hr) 1 patch DAILY TRANSDERM Last administered on 08/26/18 08:36; Admin Dose 1 PATCH; Start 08/25/18 at 20:00 CAMELIA MOSES Aug 26, 2018 16:35
[2018-08-26 20:19] VITALS: BP 113/63; PULSE 79; RESP 18
[2018-08-27 01:19] VITALS: BP 99/59; PULSE 74; RESP 18
[2018-08-27] MEDS: DEXTROSE 5%-0.45% NACL 1,000 ML IV SCH ×3 (01:38→22:00)
[2018-08-27] MEDS: metroNIDAZOLE 500 MG/NS (PMX) 100 ML IVPB SCH ×3 (05:37→22:23)
[2018-08-27 07:42] VITALS: BP 101/59; PULSE 70; RESP 17
[2018-08-27] MEDS: CIPROFLOXACIN 400MG/D5W 200 ML IVPB SCH ×2 (09:14→20:48)
[2018-08-27] MEDS: FAMOTIDINE 20 MG INJ IV SCH ×2 (09:14→20:48)
[2018-08-27] MEDS: ENOXAPARIN 40 MG/0.4 ML SYG SC SCH (09:15)
--- NOTE | 2018-08-27 10:24 | PN ---
Date/Time of Note Date/Time of Note DATE: 08/27/18 TIME: 10:23 Assessment/Plan VTE Prophylaxis Risk score (from Ns)>0 risk: 1 SCD applied (from Ns): No SCD contraindicated: other (scds) Pharmacological prophylaxis: other (scds) Lines/Catheters [facility] (from [facility]): Peripheral IV Assessment/Plan Hospital Course Summary Assessment and Plan: Assessment: Acute mild diverticulitis involving the cecum Leukocytosis Dyslipidemia Plan: Advance diet to low residue Continue antibiotics as prescribed-upon discharge to change medication to metronidazole 500 mg p.o. every 8 hours and Ciprofloxacin 500 mg every 12 hours for total of 10 days Recommend colonoscopy 6 to 12 weeks after treatment of diverticulitis as an outpatient D/c planning per hospitalist Patient cleared for outpatient management from GI point of view Patient seen in collaboration with Dr. Villafana Subjective: Course reviewed with nursing staff Patient interviewed and examined All labs, imaging and other results reviewed The patient states he is feeling well No c/o pain- BM x1 today soft/loose brown in color No overt signs of GI bleed PHYSICAL EXAMINATION: GENERAL: Well developed, well nourished, alert & oriented x 3, in no acute distress SKIN: No lesions HEAD: Normocephalic, atraumatic, no tenderness. EYES: Pupils equal reactive to light and accommodation, no discharge. EARS/NOSE AND THROAT: Ears normal, nose normal, oropharynx normal. NECK: Supple, no masses. CHEST: Inspection within normal limits. CARDIOVASCULAR: Heart: Regular rate and rhythm, no murmurs RESPIRATORY: Lungs clear to auscultation GASTROINTESTINAL AND LIVER: Abdomen: Soft, tenderness RLQ, non-distended, no hernias, no masses, no organomegaly, no ascites, no guarding, no rebound tenderness, normoactive bowel sounds. Rectal: Deferred. EXTREMITIES: No cyanosis, clubbing or edema. Result Diagram: 08/27/18 0511 08/27/18 0510 Results 24hrs Laboratory Tests Test 08/27/18 05:10 08/27/18 05:11 Sodium Level 142 Potassium Level 3.6 Chloride Level 109 Carbon Dioxide Level 27 Anion Gap 6 Blood Urea Nitrogen 6 L Creatinine 1.08 Est Glomerular Filtrat Rate mL/min > 60 Glucose Level 103 Calcium Level 9.1 Phosphorus Level 3.1 Magnesium Level 2.1 Total Bilirubin 1.2 Direct Bilirubin 0.00 Indirect Bilirubin 1.2 H Aspartate Amino Transf (AST/SGOT) 17 Alanine Aminotransferase (ALT/SGPT) 29 Alkaline Phosphatase 67 Total Protein 6.2 # Albumin 3.5 # Globulin 2.70 Albumin/Globulin Ratio 1.29 Triglycerides Level 79 Cholesterol Level 117 LDL Cholesterol, Calculated 61 HDL Cholesterol 40 Cholesterol/HDL Ratio 2.9 White Blood Count 9.0 # Red Blood Count 4.07 L Hemoglobin 13.2 L Hematocrit 38.0 L Mean Corpuscular Volume 93.4 Mean Corpuscular Hemoglobin 32.4 Mean Corpuscular Hemoglobin Concent 34.7 Red Cell Distribution Width 12.0 Platelet Count 302 Mean Platelet Volume 9.6 Immature Granulocytes % 0.400 Neutrophils % 65.1 Lymphocytes % 21.8 Monocytes % 11.1 H Eosinophils % 1.3 Basophils % 0.3 Nucleated Red Blood Cells % 0.0 Immature Granulocytes # 0.040 H Neutrophils # 5.9 Lymphocytes # 2.0 Monocytes # 1.0 H Eosinophils # 0.1 Basophils # 0.0 Nucleated Red Blood Cells # 0.0 Exam/Review of Systems Exam Vitals Vital Signs Date Temp Pulse Resp B/P (MAP) Pulse Ox O2 O2 Flow FiO2 Time Delivery Rate 08/27/18 97.9 70 17 101/59 96 07:42 (73) 08/25/18 Room Air 18:32 Intake and Output 08/26/18 08/26/18 08/27/18 1515:00 23:00 07:00 IntakeIntake Total 1920 ml 1880 ml 900 ml BalanceBalance 1920 ml 1880 ml 900 ml Results Results 24hrs Laboratory Tests Test 08/27/18 05:10 08/27/18 05:11 Sodium Level 142 Potassium Level 3.6 Chloride Level 109 Carbon Dioxide Level 27 Anion Gap 6 Blood Urea Nitrogen 6 L Creatinine 1.08 Est Glomerular Filtrat Rate mL/min > 60 Glucose Level 103 Calcium Level 9.1 Phosphorus Level 3.1 Magnesium Level 2.1 Total Bilirubin 1.2 Direct Bilirubin 0.00 Indirect Bilirubin 1.2 H Aspartate Amino Transf (AST/SGOT) 17 Alanine Aminotransferase (ALT/SGPT) 29 Alkaline Phosphatase 67 Total Protein 6.2 # Albumin 3.5 # Globulin 2.70 Albumin/Globulin Ratio 1.29 Triglycerides Level 79 Cholesterol Level 117 LDL Cholesterol, Calculated 61 HDL Cholesterol 40 Cholesterol/HDL Ratio 2.9 White Blood Count 9.0 # Red Blood Count 4.07 L Hemoglobin 13.2 L Hematocrit 38.0 L Mean Corpuscular Volume 93.4 Mean Corpuscular Hemoglobin 32.4 Mean Corpuscular Hemoglobin Concent 34.7 Red Cell Distribution Width 12.0 Platelet Count 302 Mean Platelet Volume 9.6 Immature Granulocytes % 0.400 Neutrophils % 65.1 Lymphocytes % 21.8 Monocytes % 11.1 H Eosinophils % 1.3 Basophils % 0.3 Nucleated Red Blood Cells % 0.0 Immature Granulocytes # 0.040 H Neutrophils # 5.9 Lymphocytes # 2.0 Monocytes # 1.0 H Eosinophils # 0.1 Basophils # 0.0 Nucleated Red Blood Cells # 0.0 Medications Medication Current Medications Dextrose/Sodium Chloride 1,000 ml @ 100 mls/hr Q10H IV Last administered on 08/27/18at 01:38; Admin Dose 100 MLS/HR; Start 08/25/18 at 20:00 IV Flush (NS 3 ml) 3 ml PER PROTOCOL IV Last administered on 08/26/18at 01:06; Admin Dose 3 ML; Start 08/25/18 at 16:00 Ondansetron HCl (Zofran Inj) 4 mg Q6H PRN IV NAUSEA/VOMITING; Start 08/25/18 at 16:00 Acetaminophen/ Hydrocodone Bitart ([place] (5/325)) 1 tab Q6H PRN PO .MOD PAIN 4- 6; Start 08/25/18 at 16:00 Acetaminophen/ Hydrocodone Bitart ([place] (5/325)) 2 tab Q6H PRN PO .SEVERE PAIN 7-10; Start 08/25/18 at 16:00 Morphine Sulfate (morphine) 2 mg Q4H PRN IV .SEVERE PAIN 7-10; Start 08/25/18 at 16:00 Docusate Sodium (Colace) 100 mg Q12H PRN PO .CONSTIPATION; Start 08/25/18 at 16:00 Magnesium Hydroxide (Milk Of Mag) 30 ml DAILY PRN PO .CONSTIPATION; Start 08/25/18 at 16:00 Bisacodyl (Dulcolax) 5 mg DAILY PRN PO .CONSTIPATION; Start 08/25/18 at 16:00 Famotidine (Pepcid Iv) 20 mg Q12 IV Last administered on 08/27/18at 09:14; Admin Dose 20 MG; Start 08/25/18 at 21:00 Enoxaparin Sodium (Lovenox) 40 mg DAILY SC Last administered on 08/27/18 09:15; Admin Dose 40 MG; Start 08/26/18 at 09:00 Ciprofloxacin/ Dextrose 200 ml @ 200 mls/hr Q12 IVPB Last administered on 08/27/18 09:14; Admin Dose 200 MLS/HR; Start 08/25/18 at 21:00 Metronidazole 100 ml @ 100 mls/hr Q8 IVPB Last administered on 08/27/18 05:37; Admin Dose 100 MLS/HR; Start 08/25/18 at 22:00 Ketorolac Tromethamine (Toradol) 15 mg Q6H PRN IV PAIN Last administered on 08/26/18 20:42; Admin Dose 15 MG; Start 08/25/18 at 16:00; Stop 08/28/18 at 15:59 Nicotine (Nicoderm 21 Mg/ 24hr) 1 patch DAILY TRANSDERM Last administered on 08/26/18at 08:36; Admin Dose 1 PATCH; Start 08/25/18 at 20:00 CAMELIA MOSES Aug 27, 2018 10:24
--- NOTE | 2018-08-27 10:24 | PN ---
Date/Time of Note Date/Time of Note DATE: 08/27/18 TIME: 10:23 Assessment/Plan VTE Prophylaxis Risk score (from Ns)>0 risk: 1 SCD applied (from Ns): No SCD contraindicated: other Pharmacological prophylaxis: NA/contraindicated Pharm contraindication: low risk/ambulating Lines/Catheters [facility] (from [facility]): Peripheral IV Assessment/Plan Hospital Course SUBJECTIVE: Remains afebrile. Continues to have abdominal pain, well controlled with analgesics. OBJECTIVE: Physical Exam General: Adequately build 48 year-old male lying in bed in no apparent distress. HEENT: Normocephalic, atraumatic. Eyes: Anicteric sclerae, conjunctivae clear. ENT: Nasal septum midline, oral mucosa moist. Neck supple, no JVD noticed. Respiratory: Bilaterally clear breath sounds. No use of accessory muscles of respiration. No adventitious breath sounds. Cardiovascular: S1, S2 heard. No murmurs or gallops. Abdomen: Soft and nondistended. Right lower quadrant tenderness. Bowel sounds positive in all 4 quadrants. Genitourinary: Deferred. Extremities: No cyanosis, no clubbing, no edema. Peripheral pulses palpable. Neurologic: Cranial nerves II through XII grossly intact. The patient is awake, alert, and oriented. Skin: Normal skin turgor. No skin rashes. Labs & Vitals per chart ASSESSMENT & PLAN 42-year-old male with past medical history of dyslipidemia who presented to the emergency room with chief complaint of abdominal pain and dizziness with CT scan showing acute inflammation involving the cecum with several diverticuli and adjacent fatty stranding and bowel wall thickening suggestive of mild diverticulitis, who was admitted to inpatient setting for further treatment and evaluation. 1. Acute diverticulitis. Continue antimicrobials. Being followed by general surgery and gastroenterology. On clear liquids. 2. Dyslipidemia. Resume Lopid. 3. Nicotine use. Cessation advised. Continue nicotine patch. 4. Fluids, electrolytes, and nutrition. Clear liquids. Advance as tolerated. 5. DVT prophylaxis. Bilateral SCDs. Subcutaneous Lovenox. 6. Plan. Continue antimicrobials including coverage for anaerobes. Advance diet as tolerated. The patient was seen in collaboration with Dr. Newton. Result Diagram: 08/27/18 0511 08/27/18 0510 Results 24hrs Laboratory Tests Test 08/27/18 05:10 08/27/18 05:11 Sodium Level 142 Potassium Level 3.6 Chloride Level 109 Carbon Dioxide Level 27 Anion Gap 6 Blood Urea Nitrogen 6 L Creatinine 1.08 Est Glomerular Filtrat Rate mL/min > 60 Glucose Level 103 Calcium Level 9.1 Phosphorus Level 3.1 Magnesium Level 2.1 Total Bilirubin 1.2 Direct Bilirubin 0.00 Indirect Bilirubin 1.2 H Aspartate Amino Transf (AST/SGOT) 17 Alanine Aminotransferase (ALT/SGPT) 29 Alkaline Phosphatase 67 Total Protein 6.2 # Albumin 3.5 # Globulin 2.70 Albumin/Globulin Ratio 1.29 Triglycerides Level 79 Cholesterol Level 117 LDL Cholesterol, Calculated 61 HDL Cholesterol 40 Cholesterol/HDL Ratio 2.9 White Blood Count 9.0 # Red Blood Count 4.07 L Hemoglobin 13.2 L Hematocrit 38.0 L Mean Corpuscular Volume 93.4 Mean Corpuscular Hemoglobin 32.4 Mean Corpuscular Hemoglobin Concent 34.7 Red Cell Distribution Width 12.0 Platelet Count 302 Mean Platelet Volume 9.6 Immature Granulocytes % 0.400 Neutrophils % 65.1 Lymphocytes % 21.8 Monocytes % 11.1 H Eosinophils % 1.3 Basophils % 0.3 Nucleated Red Blood Cells % 0.0 Immature Granulocytes # 0.040 H Neutrophils # 5.9 Lymphocytes # 2.0 Monocytes # 1.0 H Eosinophils # 0.1 Basophils # 0.0 Nucleated Red Blood Cells # 0.0 Exam/Review of Systems Exam Vitals Vital Signs Date Temp Pulse Resp B/P (MAP) Pulse Ox O2 O2 Flow FiO2 Time Delivery Rate 08/27/18 97.9 70 17 101/59 96 07:42 (73) 08/25/18 Room Air 18:32 Intake and Output 08/26/18 08/26/18 08/27/18 1515:00 23:00 07:00 IntakeIntake Total 1920 ml 1880 ml 900 ml BalanceBalance 1920 ml 1880 ml 900 ml Results Results 24hrs Laboratory Tests Test 08/27/18 05:10 08/27/18 05:11 Sodium Level 142 Potassium Level 3.6 Chloride Level 109 Carbon Dioxide Level 27 Anion Gap 6 Blood Urea Nitrogen 6 L Creatinine 1.08 Est Glomerular Filtrat Rate mL/min > 60 Glucose Level 103 Calcium Level 9.1 Phosphorus Level 3.1 Magnesium Level 2.1 Total Bilirubin 1.2 Direct Bilirubin 0.00 Indirect Bilirubin 1.2 H Aspartate Amino Transf (AST/SGOT) 17 Alanine Aminotransferase (ALT/SGPT) 29 Alkaline Phosphatase 67 Total Protein 6.2 # Albumin 3.5 # Globulin 2.70 Albumin/Globulin Ratio 1.29 Triglycerides Level 79 Cholesterol Level 117 LDL Cholesterol, Calculated 61 HDL Cholesterol 40 Cholesterol/HDL Ratio 2.9 White Blood Count 9.0 # Red Blood Count 4.07 L Hemoglobin 13.2 L Hematocrit 38.0 L Mean Corpuscular Volume 93.4 Mean Corpuscular Hemoglobin 32.4 Mean Corpuscular Hemoglobin Concent 34.7 Red Cell Distribution Width 12.0 Platelet Count 302 Mean Platelet Volume 9.6 Immature Granulocytes % 0.400 Neutrophils % 65.1 Lymphocytes % 21.8 Monocytes % 11.1 H Eosinophils % 1.3 Basophils % 0.3 Nucleated Red Blood Cells % 0.0 Immature Granulocytes # 0.040 H Neutrophils # 5.9 Lymphocytes # 2.0 Monocytes # 1.0 H Eosinophils # 0.1 Basophils # 0.0 Nucleated Red Blood Cells # 0.0 Medications Medication Current Medications Dextrose/Sodium Chloride 1,000 ml @ 100 mls/hr Q10H IV Last administered on 08/27/18at 01:38; Admin Dose 100 MLS/HR; Start 08/25/18 at 20:00 IV Flush (NS 3 ml) 3 ml PER PROTOCOL IV Last administered on 08/26/18at 01:06; Admin Dose 3 ML; Start 08/25/18 at 16:00 Ondansetron HCl (Zofran Inj) 4 mg Q6H PRN IV NAUSEA/VOMITING; Start 08/25/18 at 16:00 Acetaminophen/ Hydrocodone Bitart ([place] (5/325)) 1 tab Q6H PRN PO .MOD PAIN 4- 6; Start 08/25/18 at 16:00 Acetaminophen/ Hydrocodone Bitart ([place] (5/325)) 2 tab Q6H PRN PO .SEVERE PAIN 7-10; Start 08/25/18 at 16:00 Morphine Sulfate (morphine) 2 mg Q4H PRN IV .SEVERE PAIN 7-10; Start 08/25/18 at 16:00 Docusate Sodium (Colace) 100 mg Q12H PRN PO .CONSTIPATION; Start 08/25/18 at 16:00 Magnesium Hydroxide (Milk Of Mag) 30 ml DAILY PRN PO .CONSTIPATION; Start 08/25/18 at 16:00 Bisacodyl (Dulcolax) 5 mg DAILY PRN PO .CONSTIPATION; Start 08/25/18 at 16:00 Famotidine (Pepcid Iv) 20 mg Q12 IV Last administered on 08/27/18 09:14; Admin Dose 20 MG; Start 08/25/18 at 21:00 Enoxaparin Sodium (Lovenox) 40 mg DAILY SC Last administered on 08/27/18 09:15; Admin Dose 40 MG; Start 08/26/18 at 09:00 Ciprofloxacin/ Dextrose 200 ml @ 200 mls/hr Q12 IVPB Last administered on 08/27/18 09:14; Admin Dose 200 MLS/HR; Start 08/25/18 at 21:00 Metronidazole 100 ml @ 100 mls/hr Q8 IVPB Last administered on 08/27/18 05:37; Admin Dose 100 MLS/HR; Start 08/25/18 at 22:00 Ketorolac Tromethamine (Toradol) 15 mg Q6H PRN IV PAIN Last administered on 08/26/18 20:42; Admin Dose 15 MG; Start 08/25/18 at 16:00; Stop 08/28/18 at 15:59 Nicotine (Nicoderm 21 Mg/ 24hr) 1 patch DAILY TRANSDERM Last administered on 08/26/18 08:36; Admin Dose 1 PATCH; Start 08/25/18 at 20:00 LUMA HURLEY NP Aug 27, 2018 10:24
[2018-08-27] MEDS: NICOTINE (21 MG/24 HR) PATCH TRANSDERM SCH (11:03)
--- NOTE | 2018-08-27 13:47 | PN ---
Date/Time of Note Date/Time of Note DATE: 08/27/18 TIME: 13:44 Assessment/Plan Lines/Catheters IV Catheter Type (from Nrs): Peripheral IV Assessment/Plan Chief Complaint/Hosp Course 1. Mild diverticulitis involving cecum -GI consult noted > follow-up with GI as outpatient -May be discharged from surgical standpoint. -If recurs, can consider surgical intervention at that point 2. Abdominal pain: Improved -As above -Pain management 3. Constipation: -Bowel regimen optimization 4. Leukocytosis: Resolved -As above 5. Hyperlipidemia: -Medical management Thank you. Patient seen and examined in collaboration with Dr. Collin Blanchard. Subjective 24 Hr Interval Summary Feels much improved. No fevers, chills, sob, congested cough, cp, palpitations, [place], dizziness, nausea, vomiting, diarrhea, dysuria. WBC normalized Exam/Review of Systems Vital Signs Vitals Vital Signs Date Temp Pulse Resp B/P (MAP) Pulse Ox O2 O2 Flow FiO2 Time Delivery Rate 08/27/18 97.9 70 17 101/59 96 07:42 (73) 08/25/18 Room Air 18:32 Intake and Output 08/26/18 08/26/18 08/27/18 1515:00 23:00 07:00 IntakeIntake Total 1920 ml 1880 ml 900 ml BalanceBalance 1920 ml 1880 ml 900 ml Exam Free Text/Dictation Constitutional: alert, oriented Psych: nl mood/affect; No anxiety Head: normocephalic, atraumatic Eyes: nl conjunctiva, EOMI, nl lids, nl sclera ENMT: nl external ears & nose, nl lips & teeth, mucosa pink and moist Neck: supple, non-tender Respiratory: clear to auscultation, normal air movement; No congested cough Cardiovascular: regular rate and rhythm; No edema Gastrointestinal: soft, nondistended, tender (Right lower quadrant-much improved); No rebound or guarding Musculoskeletal: nl extremities to inspection, nl gait and stance Extremities: normal pulses Neurological: nl mental status, nl speech, nl strength Skin: No rash or lesions Lymph: nl lymph nodes Results Result Diagram: 08/27/18 0511 08/27/18 0510 BELINDA OLVERA NP Aug 27, 2018 13:46
[2018-08-27 14:00] VITALS: BP 99/61; PULSE 72; RESP 18
[2018-08-27 20:27] VITALS: BP 109/69; PULSE 79; RESP 18
[2018-08-27] MEDS: GEMFIBROZIL 600 MG TAB PO SCH (20:48)
[2018-08-28 01:43] VITALS: BP 114/72; PULSE 71; RESP 17
[2018-08-28] MEDS: DEXTROSE 5%-0.45% NACL 1,000 ML IV SCH ×2 (04:25→08:00)
[2018-08-28] MEDS: metroNIDAZOLE 500 MG/NS (PMX) 100 ML IVPB SCH ×2 (06:09→14:10)
[2018-08-28 07:30] VITALS: BP 114/63; PULSE 75; RESP 20
[2018-08-28] MEDS: GEMFIBROZIL 600 MG TAB PO SCH (08:26)
[2018-08-28] MEDS: FAMOTIDINE 20 MG INJ IV SCH (08:26)
[2018-08-28] MEDS: NICOTINE (21 MG/24 HR) PATCH TRANSDERM SCH (08:27)
[2018-08-28] MEDS: CIPROFLOXACIN 400MG/D5W 200 ML IVPB SCH (08:27)
[2018-08-28] MEDS: ENOXAPARIN 40 MG/0.4 ML SYG SC SCH (08:30)
[2018-08-28] MEDS ORDERED: CIPR750T3 PO (08:48)
[2018-08-28] MEDS ORDERED: METR-122 PO (08:48)
--- NOTE | 2018-08-28 08:53 | PDOCDIS ---
Discharge Instructions CONDITION [id number] Patient Condition: [id number] Stable HOME CARE INSTRUCTIONS: [id number] Diet Instructions: [id number] Low Fat /Cholesterol [id number] Special Diet: [id number] Low residue FOLLOW UP/APPOINTMENTS Follow-up Plan Annelise Villafana MD Specialty: Gastroenterology Comments Office [id number] [facility] [address] [place] [address] Office OTHER ORDERS: Other Orders: 1. Complete the course of antibiotics. 2. Follow a low-cholesterol, low residue diet. 3. Resume activities as tolerated. 4. Please follow-up with outpatient gastroenterology (Dr. Villafana) in 1 month for a colonoscopy. 5. Please go to the nearest emergency room if you have any fevers, significant abdominal pain, persistent diarrhea, or any other unusual signs/symptoms. LUMA HURLEY NP Aug 28, 2018 08:53
--- NOTE | 2018-08-28 08:55 | DS ---
Date/Time of Note Date/Time of Note DATE: 08/28/18 TIME: 08:53 Discharge Summary Admission/Discharge Info Admit Date/Time Aug 25, 2018 at 16:40 Discharge Date/Time Discharge Diagnosis 1. Acute diverticulitis. 2. Dyslipidemia. 3. Nicotine use. Patient Condition: Stable Consults 1. Collin Blanchard MD, General Surgery. 2. Annelise Villafana MD, Gastroenterology. Procedures CT Abdomen & Pelvis IMPRESSION: 1. ACUTE INFLAMMATION INVOLVING THE CECUM, WITH SEVERAL DIVERTICULI AND ADJACENT FATTY STRANDING AND BOWEL WALL THICKENING SUGGESTIVE OF MILD DIVERTICULITIS. NO EVIDENCE OF PERFORATION OR FOCAL FLUID COLLECTIONS. 2. The appendix is well visualized and within normal limits. 3. Stool filled loops of large bowel suggestive of constipation. No evidence of bowel obstruction. 4. No evidence of free fluid or free air. No gross focal fluid collections. Hx of Present Illness This is a 42-year-old male with past medical history of dyslipidemia who presented to the emergency room with chief complaint of abdominal pain and dizziness with CT scan showing acute inflammation involving the cecum with several diverticuli and adjacent fatty stranding and bowel wall thickening suggestive of mild diverticulitis, who was admitted to inpatient setting for further treatment and evaluation. Hospital Course A general surgery consult and a gastroenterology consult was obtained. The patient was kept n.p.o. The patient was started on antimicrobial therapy including coverage for anaerobes. The patient was provided with adequate IV hydration. He was provided with adequate pain control. Once the patient's abdominal pain improved, the patient was started on a clear liquid diet and the patient's diet was advanced as tolerated to a low residue diet without any significant abdominal pain. The patient responded well to the treatment strategy. The patient was cleared by consultants to be discharged home, to complete the course of antibiotic therapy. The patient needs eventual colonoscopy in the next 6 weeks. The patient has chronic constipation. Therefore, the patient will also be discharged home on a bowel regimen. The patient had does not have any significant other comorbidities other than hyperlipidemia. The patient's lipid panel was satisfactory. The patient was resumed on fibrates, once he was able to tolerate oral intake. The patient had a stable hospital course. Discharge Instructions 1. Complete the course of antibiotics. 2. Follow a low-cholesterol, low residue diet. 3. Resume activities as tolerated. 4. Please follow-up with outpatient gastroenterology (Dr. Villafana) in 1 month for a colonoscopy. 5. Please go to the nearest emergency room if you have any fevers, significant abdominal pain, persistent diarrhea, or any other unusual signs/symptoms. The patient verbalized understanding of his discharge instructions. At this time I would like to thank all the consultants for seeing the patient and providing clinical recommendations. The patient was seen in collaboration with Dr. Newton. Home Meds Active Scripts Docusate Sodium* (Colace*) 100 Mg Capsule, 100 MG PO BID, #20 CAP Prov:LUMA HURLEY [employer] 08/28/18 Metronidazole* (Metronidazole*) 500 Mg Tablet, 500 MG PO Q8 for 10 Days, #30 TAB Prov:LUMA HURLEY NP 08/28/18 Ciprofloxacin Hcl* (Ciprofloxacin Hcl*) 750 Mg Tablet, 750 MG PO BID for 10 Days, #20 TAB Prov:LUMA HURLEY [employer] 08/28/18 Reported Medications Gemfibrozil* (Gemfibrozil*) 600 Mg Tablet, 600 MG PO BID, TAB 08/25/18 Follow-up Plan Annelise Villafana MD Specialty: Gastroenterology Comments Office [id number] [place] [address] [address] [place] [address] Office Primary Care Provider Care Physician No Primary Time spent on discharge: > 30 minutes Pending Labs Laboratory Tests Test 08/27/18 10:42 08/28/18 05:38 Stool Occult Blood NEGATIVE (NEGATIVE) White Blood Count 6.1 10^3/ul (4.8-10.8) Red Blood Count 4.16 10^6/ul (4.70-6.10) Hemoglobin 12.9 g/dl (14.0-18.0) Hematocrit 38.4 % (42.0-52.0) Mean Corpuscular Volume 92.3 fl (82.0-101.0) Mean Corpuscular Hemoglobin 31.0 pg (29.0-33.0) Mean Corpuscular 33.6 g/dl (32.0-37.0) Hemoglobin Concent Red Cell Distribution Width 12.1 % (11.5-14.5) Platelet Count 336 10^3/UL (140-415) Mean Platelet Volume 9.6 fl (7.4-10.4) Immature Granulocytes % 0.200 % (0.001-0.429) Neutrophils % 46.5 % (39.0-77.0) Lymphocytes % 39.3 % (15.0-51.0) Monocytes % 11.2 % (0.0-11.0) Eosinophils % 2.5 % (0.0-7.0) Basophils % 0.3 % (0.0-2.0) Nucleated Red Blood Cells % 0.0 /100WBC (0.0-0.0) Immature Granulocytes # 0.010 10^3/ul (0.0-0.031) Neutrophils # 2.8 10^3/ul (1.6-7.5) Lymphocytes # 2.4 10^3/ul (0.8-2.9) Monocytes # 0.7 10^3/ul (0.3-0.9) Eosinophils # 0.2 10^3/ul (0.0-0.5) Basophils # 0.0 10^3/ul (0.0-0.1) Nucleated Red Blood Cells # 0.0 10^3/ul (0.0-0.0) Sodium Level 143 mmol/L (135-144) Potassium Level 3.9 mmol/L (3.5-5.1) Chloride Level 110 mmol/L (97-110) Carbon Dioxide Level 26 mmol/L (21-31) Anion Gap 7 (5-13) Blood Urea Nitrogen 7 mg/dl (7-20) Creatinine 0.94 mg/dl (0.61-1.24) Est Glomerular Filtrat > 60 mL/min (>60) Rate mL/min Glucose Level 100 mg/dl (70-220) Calcium Level 9.0 mg/dl (8.4-10.2) Phosphorus Level 3.4 mg/dl (2.5-4.9) Magnesium Level 2.1 mg/dl (1.7-2.5) LUMA HURLEY NP Aug 28, 2018 08:55
[2018-08-28] MEDS ORDERED: DOCU-144 PO (08:59)
[2018-08-28 14:58] VITALS: BP 99/57; PULSE 69; RESP 20
--- NOTE | 2018-08-28 15:36 | PN ---
Date/Time of Note Date/Time of Note DATE: 08/28/18 TIME: 14:12 Assessment/Plan Lines/Catheters IV Catheter Type (from Nrs): Peripheral IV Assessment/Plan Chief Complaint/Hosp Course 1. Mild diverticulitis involving cecum -GI consult noted > follow-up with GI as outpatient -May be discharged from surgical standpoint. -If recurs, can consider surgical intervention at that point 2. Abdominal pain: resolved -As above -Pain management 3. Constipation: -Bowel regimen optimization 4. Leukocytosis: Resolved -As above 5. Hyperlipidemia: -Medical management Thank you. Patient seen and examined in collaboration with Dr. Collin Blanchard. Subjective 24 Hr Interval Summary Feels much better. No fevers, chills, sob, congested cough, cp, palpitations, [place], dizziness, n/v/d/dysuria. + bowel function. Exam/Review of Systems Vital Signs Vitals Vital Signs Date Temp Pulse Resp B/P (MAP) Pulse Ox O2 O2 Flow FiO2 Time Delivery Rate 08/28/18 98.0 75 20 114/63 100 07:30 (80) 08/25/18 Room Air 18:32 Intake and Output 08/27/18 08/27/18 08/28/18 1515:00 23:00 07:00 IntakeIntake Total 300 ml 2700 ml 1050 ml BalanceBalance 300 ml 2700 ml 1050 ml Exam Free Text/Dictation Constitutional: alert, oriented Psych: nl mood/affect; No anxiety Head: normocephalic, atraumatic Eyes: nl conjunctiva, EOMI, nl lids, nl sclera ENMT: nl external ears & nose, nl lips & teeth, mucosa pink and moist Neck: supple, non-tender Respiratory: clear to auscultation, normal air movement; No congested cough Cardiovascular: regular rate and rhythm; No edema Gastrointestinal: soft, nondistended, tender (Right lower quadrant-much improved); No rebound or guarding Musculoskeletal: nl extremities to inspection, nl gait and stance Extremities: normal pulses Neurological: nl mental status, nl speech, nl strength Skin: No rash or lesions Lymph: nl lymph nodes Results Result Diagram: 08/28/18 0538 08/28/18 0538 BELINDA OLVERA NP Aug 28, 2018 15:36
== END 2018-08-28 15:35 | disposition home or self-care (01) | DRG 392 ==
LOC: E/R 13:34 → 2NE 16:40
PROVIDERS: ADMIT Internal Medicine; ATTEND Internal Medicine
DX: K57.32 Diverticulitis of large intestine without perforation or abscess without bleeding (principal); E78.5 Hyperlipidemia, unspecified; K59.00 Constipation, unspecified; Z72.0 Tobacco use
CPT/HCPCS: 36415; 74176; 80048; 80053; 80061; 81001; 82270; 83690; 83735; 84100; 85025; 85610; 85730; 87086; 96361; 96374; 96375; J0744; J1650; J1885; J2543; J7030; J7042